=== PATIENT | male | born 1985 | race Caucasian/White ===

== ENCOUNTER 2022-03-06 19:42 | Inpatient (IN) | payer OTHER ==
[2022-03-06 22:11] VITALS: BMI 23.8
[2022-03-06] MEDS ORDERED: MAGNESIUM CITRATE 300 ML BOTTLE PO PRN (22:54)
[2022-03-06] MEDS ORDERED: BENZOCAINE/MENTHOL (CHLORASEPTIC ) LOZENGE MM PRN (22:54)
[2022-03-06] MEDS ORDERED: ONDANSETRON *ODT* 4 MG TABLET SL PRN (22:54)
[2022-03-06] MEDS ORDERED: MAGNESIUM HYDROX 2400MG/30ML ORAL SUSPENSION 30 ML CUP PO PRN (22:54)
[2022-03-06] MEDS ORDERED: DICYCLOMINE HCL 10 MG CAPSULE PO PRN (22:54)
[2022-03-06] MEDS ORDERED: MAG HYDROX/AL HYDROX/SIMETH 30 ML UNIT-DOSE CUP PO PRN (22:54)
[2022-03-06] MEDS ORDERED: LOPERAMIDE HCL 2 MG CAPSULE PO PRN (22:54)
[2022-03-06] MEDS ORDERED: IBUPROFEN 600 MG TABLET (FP) PO PRN (22:54)
[2022-03-06] MEDS ORDERED: BISMUTH SUBSALICYLATE 524 MG/30 ML PO PRN (22:54)
[2022-03-06] MEDS ORDERED: IBUPROFEN 400 MG TABLET (FP) PO PRN (22:54)
[2022-03-06] MEDS ORDERED: ACETAMINOPHEN 325 MG TABLET (FP) PO PRN ×2 (22:54)
[2022-03-06] MEDS ORDERED: P-EPHED 60MG/TRIPROLIDI 2.5MG TABLET PO PRN (22:54)
[2022-03-06] MEDS ORDERED: cloNIDine HCL 0.1 MG TABLET PO PRN (22:57)
[2022-03-06] MEDS ORDERED: methaDONE HCL 10 MG TABLET (FOR DETOX USE ONLY) PO ONE (22:57)
[2022-03-06] MEDS ORDERED: methaDONE HCL 10 MG TABLET (FOR DETOX USE ONLY) ONE (23:35)
[2022-03-07] MEDS: hydrOXYzine PAMOATE 25 MG CAPSULE (FP) PO PRN ×3 (01:46→21:46)
[2022-03-07] MEDS: MELATONIN 5 MG TABLETS PO PRN ×2 (01:46→21:46)
[2022-03-07] MEDS ORDERED: methaDONE HCL 10 MG TABLET (FOR DETOX USE ONLY) ONE (08:52)
[2022-03-07] MEDS: PRENATAL VITAMINS W/ FOLIC ACID TABLET (FP) PO SCH (10:11)
[2022-03-07] MEDS: NICOTINE 14 MG/24 HOURS TOPICAL PATCH TD SCH (10:11)
[2022-03-07 12:08] LABS: HEMATOCRIT 41.2 % (35.4-49); MCH 26.2 pg (25.7-33.7); MCHC 34.1 g/dl (32.0-35.9); MEAN CELL VOLUME 76.9 fl (80-96); PLATELET COUNT 239 10^3/uL (134-434); RBC 5.35 M/mm3 (4.00-5.60); RDW 13.9 % (11.9-15.9); WHITE BLOOD COUNT 10.6 K/mm3 (4.0-10.0)
[2022-03-07 12:14] LABS: CALCIUM 8.8 mg/dL (8.5-10.1)
[2022-03-07 12:15] LABS: ALBUMIN 3.4 g/dl (3.4-5.0); BLOOD UREA NITROGEN 16.5 mg/dL (7-18)
[2022-03-07 12:20] LABS: TOT PROT 6.1 g/dl (6.4-8.2)
[2022-03-07] MEDS ORDERED: POTASSIUM CHLORIDE ORAL LIQUID 20 MEQ/15 ML PO ONE (15:17)
[2022-03-07] MEDS: NICOTINE 10 MG CARTRIDGE (INHALER) IH PRN (17:44)
[2022-03-07] MEDS: diazePAM 5 MG TABLET PO PRN ×2 (17:45→21:46)
[2022-03-07] MEDS: NICOTINE POLACRILEX 2 MG GUM BUC PRN (19:03)
[2022-03-07] MEDS: METHOCARBAMOL 500 MG TABLET PO PRN (19:17)
[2022-03-07] MEDS: POTASSIUM CHLORIDE ORAL LIQUID 20 MEQ/15 ML PO SCH (21:49)
[2022-03-07] MEDS ORDERED: THIAMINE HCL 100 MG TABLET (FP) PO SCH (22:00)
[2022-03-08] MEDS: METHOCARBAMOL 500 MG TABLET PO PRN (05:23)
[2022-03-08] MEDS: hydrOXYzine PAMOATE 25 MG CAPSULE (FP) PO PRN ×3 (05:23→17:38)
[2022-03-08] MEDS: diazePAM 5 MG TABLET PO PRN ×3 (05:23→17:38)
[2022-03-08] MEDS: NICOTINE 14 MG/24 HOURS TOPICAL PATCH TD SCH (09:42)
[2022-03-08] MEDS: PRENATAL VITAMINS W/ FOLIC ACID TABLET (FP) PO SCH (09:42)
[2022-03-08] MEDS: POTASSIUM CHLORIDE ORAL LIQUID 20 MEQ/15 ML PO SCH (09:45)
[2022-03-08] MEDS ORDERED: methaDONE HCL 10 MG TABLET (FOR DETOX USE ONLY) PO ONE (10:00)
[2022-03-08] MEDS: NICOTINE POLACRILEX 2 MG GUM BUC PRN ×2 (10:52→17:40)
[2022-03-08 12:56] LABS: BASO % 0.7 % (0-2.0); EOS % 1.6 % (0-4.5); HEMATOCRIT 41.3 % (35.4-49); HEMOGLOBIN 14.3 GM/dL (11.7-16.9); LYMPH % 51.4 % (8-40); MCH 26.5 pg (25.7-33.7); MCHC 34.7 g/dl (32.0-35.9); MEAN CELL VOLUME 76.5 fl (80-96); MEAN PLT VOLUME 9.3 fl (7.5-11.1); MONO % 5.2 % (3.8-10.2); NEUT % 41.1 % (42.8-82.8); PLATELET COUNT 230 10^3/uL (134-434); WHITE BLOOD COUNT 7.9 K/mm3 (4.0-10.0)
[2022-03-08 17:06] VITALS: BP 103/58; PULSE 64; TEMP 98
[2022-03-08] MEDS: NICOTINE 10 MG CARTRIDGE (INHALER) IH PRN (17:45)
[2022-03-08] MEDS ORDERED: SUVOREXANT 10 MG TABLET PO PRN (22:00)
[2022-03-08] MEDS ORDERED: SUVOREXANT 15 MG TABLET PO PRN (22:00)
== END 2022-03-08 19:45 | disposition left against medical advice (07) | DRG 770 ==
LOC: YASAS 19:42 → Y3N 23:57
PROVIDERS: ADMIT Allergy & Immunology; ATTEND Surgery
PROC: HZ2ZZZZ Detoxification Services for Substance Abuse Treatment (ICD-10-PCS; principal; 2022-03-06)
DX: F11.23 Opioid dependence with withdrawal (principal); F14.20 Cocaine dependence, uncomplicated; F12.20 Cannabis dependence, uncomplicated; F17.210 Nicotine dependence, cigarettes, uncomplicated; F19.282 Other psychoactive substance dependence with psychoactive substance-induced sleep disorder; F19.24 Other psychoactive substance dependence with psychoactive substance-induced mood disorder; E87.6 Hypokalemia; Z28.310 Unvaccinated for COVID-19; Z28.9 Immunization not carried out for unspecified reason
CPT/HCPCS: 36415; 80053; 84132; 85025; 85027; 86780; 87811; C9803-CS; U0003; U0005

== ENCOUNTER 2022-03-10 08:43 | Inpatient (IN) | payer OTHER ==
[2022-03-09 22:14] VITALS: BMI 23.8
[2022-03-09] MEDS: diazePAM 5 MG TABLET PO PRN (23:38)
[2022-03-10] MEDS: diazePAM 5 MG TABLET PO PRN ×4 (04:37→20:34)
[~2022-03-10 08:43] MED LIST: ACETAMINOPHEN 325 MG TABLET (FP) PO PRN; BENZOCAINE/MENTHOL (CHLORASEPTIC ) LOZENGE MM PRN; BISMUTH SUBSALICYLATE 524 MG/30 ML PO PRN; DICYCLOMINE HCL 10 MG CAPSULE PO PRN; IBUPROFEN 400 MG TABLET (FP) PO PRN; IBUPROFEN 600 MG TABLET (FP) PO PRN; LOPERAMIDE HCL 2 MG CAPSULE PO PRN; MAG HYDROX/AL HYDROX/SIMETH 30 ML UNIT-DOSE CUP PO PRN; MAGNESIUM CITRATE 300 ML BOTTLE PO PRN; MAGNESIUM HYDROX 2400MG/30ML ORAL SUSPENSION 30 ML CUP PO PRN; MELATONIN 5 MG TABLETS PO ONE; NICOTINE 10 MG CARTRIDGE (INHALER) IH PRN; NICOTINE POLACRILEX 2 MG GUM BUC PRN; ONDANSETRON *ODT* 4 MG TABLET SL PRN; P-EPHED 60MG/TRIPROLIDI 2.5MG TABLET PO PRN; cloNIDine HCL 0.1 MG TABLET PO PRN; diazePAM 5 MG TABLET ONE; guaiFENesin 200 MG/10 ML 10 ML UNIT-DOSE CUPS PO PRN; methaDONE HCL 10 MG TABLET (FOR DETOX USE ONLY) ONE; methaDONE HCL 10 MG TABLET (FOR DETOX USE ONLY) PO ONE
[2022-03-10] MEDS ORDERED: methaDONE HCL 10 MG TABLET (FOR DETOX USE ONLY) PO ONE (10:00)
[2022-03-10] MEDS ORDERED: diazePAM 5 MG TABLET ONE (10:25)
[2022-03-10] MEDS ORDERED: methaDONE HCL 10 MG TABLET (FOR DETOX USE ONLY) ONE (10:26)
[2022-03-10] MEDS ORDERED: METHOCARBAMOL 500 MG TABLET ONE (10:30)
[2022-03-10] MEDS: METHOCARBAMOL 500 MG TABLET PO PRN ×2 (10:31→22:28)
[2022-03-10] MEDS: NICOTINE 14 MG/24 HOURS TOPICAL PATCH TD SCH (13:34)
[2022-03-10] MEDS: PRENATAL VITAMINS W/ FOLIC ACID TABLET (FP) PO SCH (13:34)
[2022-03-10] MEDS: hydrOXYzine PAMOATE 25 MG CAPSULE (FP) PO PRN ×3 (13:35→22:28)
[2022-03-10] MEDS ORDERED: THIAMINE HCL 100 MG TABLET (FP) PO SCH (22:00)
[2022-03-10] MEDS ORDERED: MELATONIN 5 MG TABLETS PO SCH (22:00)
[2022-03-11] MEDS: diazePAM 5 MG TABLET PO PRN ×3 (00:04→15:54)
[2022-03-11] MEDS ORDERED: methaDONE HCL 10 MG TABLET (FOR DETOX USE ONLY) PO ONE (10:00)
[2022-03-11] MEDS: PRENATAL VITAMINS W/ FOLIC ACID TABLET (FP) PO SCH (10:54)
[2022-03-11] MEDS: NICOTINE 14 MG/24 HOURS TOPICAL PATCH TD SCH (10:54)
[2022-03-11 13:26] VITALS: PULSE 72
[2022-03-11 17:09] VITALS: BP 109/53; TEMP 98.2
[2022-03-12] MEDS ORDERED: methaDONE HCL 10 MG TABLET (FOR DETOX USE ONLY) PO ONE (10:00)
== END 2022-03-11 18:17 | disposition home or self-care (01) | DRG 773 ==
LOC: YASAS 08:43 → Y6N 12:41
PROVIDERS: ADMIT Allergy & Immunology; ATTEND Surgery
PROC: HZ2ZZZZ Detoxification Services for Substance Abuse Treatment (ICD-10-PCS; principal; 2022-03-10)
DX: F11.23 Opioid dependence with withdrawal (principal); F14.20 Cocaine dependence, uncomplicated; F12.20 Cannabis dependence, uncomplicated; F17.213 Nicotine dependence, cigarettes, with withdrawal; Z28.310 Unvaccinated for COVID-19
CPT/HCPCS: C9803-CS; U0003; U0005